=== PATIENT | male | born 1960 | race Caucasian/White ===

== ENCOUNTER 2018-09-08 21:30 | Observation (INO) | payer MEDICAID, OTHER, SELFPAY ==
[2018-09-08 22:33] LABS: BASO # 0.2 K/uL (0.0-0.2); BASO % 1.5 % (0.0-2.0); EOS # 0.4 K/uL (0.0-0.7); EOS % 3.4 % (0.0-4.0); HEMOGLOBIN 17.4 g/dL (12.0-18.0); LYMPH % 18.2 % (20.0-40.0); MEAN CELL VOLUME 85.9 fl (80.0-94.0); MEAN CORPUSCULAR HEMOGLOBIN 29.2 pg (27.0-31.0); MEAN PLATELET VOLUME 9.5 fl (7.2-11.7); MONO # 0.8 K/uL (0.0-0.8); MONO % 6.9 % (0.0-10.0); NEUT # 7.6 K/uL (1.8-7.0); NRBC % 0.4 % (0.0-0.0); RBC 5.96 Mil/uL (4.40-5.90); RED CELL DISTRIBUTION WIDTH 14.1 % (11.5-14.5); WHITE BLOOD COUNT 10.9 K/uL (4.8-10.8)
[2018-09-08 22:34] LABS: VENOUS BLOOD GAS BASE EXCESS -0.5 mmol/L (0.0-2.0); VENOUS BLOOD GAS PCO2 39 mmHg (40-60); VENOUS BLOOD GAS PO2 52 mm/Hg (30-55)
[2018-09-08 22:42] LABS: ALB/GLOB RATIO 1.2 (1.0-2.1); ALBUMIN 4.4 g/dL (3.5-5.0); ALT/SGPT 42 U/L (21-72); AST/SGOT 39 U/L (17-59); BLOOD UREA NITROGEN 16 mg/dl (9-20); CALCIUM 9.7 mg/dL (8.4-10.2); GFR NON-AFRICAN AMERICAN > 60
--- NOTE | 2018-09-08 22:54 | ED PDOC ---
HPI: Hypertension/Hypotension Time Seen by Provider: 09/08/18 22:06 Chief Complaint (Nursing): High Blood Pressure Chief Complaint (Provider): High Blood Pressure History Per: Patient History/Exam Limitations: no limitations Onset/Duration Of Symptoms: Hrs Current Symptoms Are (Timing): Still Present Additional Complaint(s): 57 y/o male with no significant PMHx presents to the ED for evaluation of what he believes to be high blood pressure. Patient reports of waking up with blood shot eyes. Patient additionally reports of having one episode of a sharp headache and dizziness that spontaneously resolved within a couple seconds. Patient reports of measuring a blood pressure with systolic in the 200s while at home. Patient was told by his girlfriend to come to the ER for further evaluation. Denies chest pain and shortness of breath. Of note, patient is an active smoker, smoking several packs of cigarettes per day for the past 40 years. PMD: none provided Past Medical History Reviewed: Historical Data, Nursing Documentation, Vital Signs Vital Signs: Last Vital Signs Temp 98.8 F 09/08/18 21:46 Pulse 68 09/08/18 22:27 Resp 18 09/08/18 22:10 BP 191/116 H 09/08/18 22:27 Pulse Ox 96 09/08/18 22:10 - Medical History PMH: No Chronic Diseases Denies: Chronic Kidney Disease - Surgical History Surgical History: No Surg Hx - Family History Family History: States: Unknown Family Hx - Social History Current smoker - smoking cessation education provided: Yes - Home Medications Home Medications: Ambulatory Orders Medication Instructions Recorded Atorvastatin [Lipitor] 10 mg PO HS #0 tab 08/27/14 Folic Acid 1 mg PO DAILY #0 tab 08/27/14 Lisinopril [Zestril] 10 mg PO DAILY #0 tab 08/27/14 Metoprolol Tartrate [Lopressor] 12.5 mg PO Q12 #0 tab 08/27/14 Multivitamin 1 tab PO DAILY #0 tab 08/27/14 Pantoprazole [Protonix EC Tab] 40 mg PO BID #0 ect 08/27/14 Thiamine [Thiamine HCl] 100 mg PO DAILY #30 tab 08/27/14 - Allergies Allergies/Adverse Reactions: Allergies Allergy/AdvReac Type Severity Reaction Status Date / Time No Known Allergies Allergy Verified 08/22/14 13:19 Review of Systems ROS Statement: Except As Marked, All Systems Reviewed And Found Negative Constitutional: Positive for: Other (possible high blood pressure) Eyes: Positive for: Redness Cardiovascular: Negative for: Chest Pain Neurological: Positive for: Headache, Dizziness Physical Exam - Reviewed Nursing Documentation Reviewed: Yes Vital Signs Reviewed: Yes - Physical Exam Appears: Positive for: No Acute Distress Head Exam: Positive for: ATRAUMATIC, NORMOCEPHALIC Skin: Positive for: Normal Color, Warm, Dry Eye Exam: Positive for: Conjunctival injection (left lateral ) Neck: Positive for: Normal, Painless ROM, Supple Cardiovascular/Chest: Positive for: Regular Rate, Rhythm. Negative for: Murmur Respiratory: Positive for: Normal Breath Sounds. Negative for: Respiratory Distress Gastrointestinal/Abdominal: Positive for: Normal Exam, Soft. Negative for: Tenderness Extremity: Positive for: Normal ROM. Negative for: Deformity Neurological/Psych: Positive for: Awake, Alert, Oriented - Laboratory Results Result Diagrams: 09/08/18 22:15 09/08/18 22:15 Lab Results: pO2 52 mm/Hg (30-55) 09/08/18 22:26 VBG pH 7.40 (7.32-7.43) 09/08/18 22: VBG pCO2 39 mmHg (40-60) L 09/08/18 22: VBG HCO3 24.2 mmol/L 09/08/18 22: VBG Total CO2 25.4 mmol/L (22-28) 09/08/18 22: VBG O2 Sat (Calc) 92.6 % (40-65) H 09/08/18 22: VBG Base Excess -0.5 mmol/L (0.0-2.0) L 09/08/18 22: VBG Potassium 3.5 mmol/L (3.6-5.2) L 09/08/18 22: Sodium 139.0 mmol/L (132-148) 09/08/18 22: Chloride 106.0 mmol/L (98-107) 09/08/18 22: Glucose 103 mg/dL (75-110) 09/08/18: Lactate 1.7 mmol/L (0.7-2.1) 09/08/18 22: FiO2 21.0 % 09/08/18 22: Total Bilirubin 1.0 mg/dl (0.2-1.3) 09/08/18 22:15 AST 39 U/L (17-59) 09/08/18 22:15 ALT 42 U/L (21-72) 09/08/18 22:15 Alkaline Phosphatase 81 U/L (38-126) 09/08/18 22:15 Total Protein 8.1 G/DL (6.3-8.2) 09/08/18 22:15 Albumin 4.4 g/dL (3.5-5.0) 09/08/18 22:15 Globulin 3.7 gm/dL (2.2-3.9) 09/08/18 22:15 Albumin/Globulin Ratio 1.2 (1.0-2.1) 09/08/18 22:15 - ECG O2 Sat by Pulse Oximetry: 96 (RA) Pulse Ox Interpretation: Normal Medical Decision Making Medical Decision Making: Time: 2213 A/P: Cardiac workup with HTN -- PO Narvasc -- Reassess patient -- VBG -- EKG -- CMP -- Troponin I -- CBC with Differentials -- CXR Two Views -- Norvasc 5 mg PO 2340 Pt has been unresponsive to Norvasc and Hydralazine. Discussed the case with Hospitalist (Dr. Cobb) who agrees with strarting Nicardipine drip. Pt to be admitted to the ICU for further treatment of HTN. Scribe Attestation: Documented by Jabari Maradiaga, acting as a scribe Steven Bello MD. Provider Scribe Attestation: All medical record entries made by the Scribe were at my direction and personally dictated by me. I have reviewed the chart and agree that the record accurately reflects my personal performance of the history, physical exam, medical decision making, and the department course for this patient. I have also personally directed, reviewed, and agree with the discharge instructions and disposition. Disposition - Clinical Impression Clinical Impression: Hypertension - Patient ED Disposition Is Patient to be Admitted: Yes - Disposition Disposition Time: 23:42 Condition: SERIOUS Forms: [facility] (Georgian)
[2018-09-08] MEDS ORDERED: Nicardipine 20 MG/200 ML 20 MG/200 ML BAG IV ONE (23:54)
[2018-09-09] MEDS ORDERED: Nicardipine 20 MG/200 ML 20 MG/200 ML BAG ONE (00:02)
--- NOTE | 2018-09-09 00:31 | CP.PCM.HP ---
History of Present Illness - History of Present Illness History of Present Illness: cc: elevated BP HPI: 57 year old Male with PMHx HTN, not on anti-hypertensive medication presents to [facility] ED for evaluation of elevated BP (223/133) at home. Patient reports he has red eyes for 3 days. States he had occipital headache (3/10) associated with blurry vision this morning which resolved on its own. Denies chest pain, dyspnea, cough, nausea, vomiting, hematuria or decreased urination. Patient reports he was diagnosed with HTN in 2015 but does not take any medications. Also, reports intermittent generalized itching rash x 20 yrs. Denies any rash in patient's partner. 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 Smokes >1PPD X 40 Yrs, Drinks socially, denies illicit drug uses Family hx: Father and mother: HTN, andrzej has hx stroke at age55. Allergies: NKDA Meds: multivitamin salesperson men's furnishings: Florencia Calabrese (girl friend) [phone] Present on Admission - Present on Admission Any Indicators Present on Admission: No Review of Systems - Review of Systems Review of Systems: All 12 systems reviewed and neg except as mentioned in HPI Past Patient History - Infectious Disease Hx of Infectious Diseases: None - Tetanus Immunizations Tetanus Immunization: Unknown - Past Medical History & Family History Past Medical History?: No - Past Social History Smoking Status: Heavy Smoker > 10 Cigarettes Daily - CARDIAC Hx Cardiac Disorders: No - PULMONARY Hx Respiratory Disorders: No - NEUROLOGICAL Hx Neurological Disorder: No - HEENT Hx HEENT Problems: No - RENAL Hx Chronic Kidney Disease: No - ENDOCRINE/METABOLIC Hx Endocrine Disorders: No - HEMATOLOGICAL/ONCOLOGICAL Hx Blood Disorders: No - INTEGUMENTARY Hx Dermatological Problems: No - MUSCULOSKELETAL/RHEUMATOLOGICAL Hx Musculoskeletal Disorders: No Hx Falls: No - GASTROINTESTINAL Hx Gastrointestinal Disorders: No - GENITOURINARY/GYNECOLOGICAL Hx Genitourinary Disorders: No - PSYCHIATRIC Hx Physical Abuse: No Hx Substance Use: No - SURGICAL HISTORY Hx Surgeries: No - ANESTHESIA Hx Anesthesia: No Meds Allergies/Adverse Reactions: Allergies Allergy/AdvReac Type Severity Reaction Status Date / Time No Known Allergies Allergy Verified 08/22/14 13:19 Physical Exam - Constitutional Appears: Non-toxic, No Acute Distress, Unkempt - Head Exam Head Exam: NORMAL INSPECTION - Eye Exam Eye Exam: Conjunctival injection (B/L (L>R)), EOMI, PERRL - ENT Exam ENT Exam: Mucous Membranes Moist - Neck Exam Neck exam: Positive for: Normal Inspection - Respiratory Exam Respiratory Exam: Clear to Auscultation Bilateral, NORMAL BREATHING PATTERN. absent: Rhonchi, Wheezes, Respiratory Distress - Cardiovascular Exam Cardiovascular Exam: REGULAR RHYTHM, +S1, +S2 - GI/Abdominal Exam GI & Abdominal Exam: Normal Bowel Sounds, Soft. absent: Tenderness - Extremities Exam Extremities exam: Positive for: normal inspection, pedal pulses present. Negative for: calf tenderness, pedal edema - Neurological Exam Neurological exam: Alert, CN II-XII Intact, Oriented x3 - Psychiatric Exam Psychiatric exam: Normal Affect, Normal Mood - Skin Additional comments: Generalized fine circular erythematous rash of different stages due to scratching. No signs of superinfection. Results - Vital Signs Recent Vital Signs: Last Vital Signs Temp 98.8 F 09/08/18 21:46 Pulse 97 H 09/09/18 00:27 Resp 18 09/09/18 00:27 BP 185/103 H 09/09/18 00:27 Pulse Ox 95 09/09/18 00:27 - Labs Result Diagrams: 09/08/18 22:15 09/08/18 22:15 Labs: Laboratory Results - last 24 hr 09/08/18 09/08/18 09/08/18 22:15 22:15 22:26 WBC 10.9 H RBC 5.96 H Hgb 17.4 Hct 51.2 H MCV 85.9 MCH 29.2 MCHC 34.0 RDW 14.1 Plt Count 216 MPV 9.5 Neut % (Auto) 70.0 Lymph % (Auto) 18.2 L [place] % (Auto) 6.9 Eos % (Auto) 3.4 Baso % (Auto) 1.5 Neut # (Auto) 7.6 H Lymph # (Auto) 2.0 [place] # (Auto) 0.8 Eos # (Auto) 0.4 Baso # (Auto) 0.2 pO2 52 VBG pH 7.40 VBG pCO2 39 L VBG HCO3 24.2 VBG Total CO2 25.4 VBG O2 Sat (Calc) 92.6 H VBG Base Excess -0.5 L VBG Potassium 3.5 L Glucose 103 Lactate 1.7 FiO2 21.0 Sodium 141 139.0 Potassium 3.8 Chloride 107 106.0 Carbon Dioxide 23 Anion Gap 15 BUN 16 Creatinine 0.9 Est GFR ( Amer) > 60 Est GFR (Non-Af Amer) > 60 Random Glucose 107 Calcium 9.7 Total Bilirubin 1.0 AST 39 ALT 42 Alkaline Phosphatase 81 Troponin I 0.0170 Total Protein 8.1 Albumin 4.4 Globulin 3.7 Albumin/Globulin Ratio 1.2 Venous Blood Potassium 3.5 L Assessment & Plan - Assessment and Plan (Free Text) Assessment: 57 year old Male with PMHx HTN, not on anti-hypertensive medication presents to [facility] ED for evaluation of elevated BP (223/133) at home. Patient reports he has red eyes for 3 days. States he had occipital headache (3/10) associated with blurry vision this morning which resolved on its own. In the ED, patient's BP was 216/112. Patient is admitted for severe asymptomatic hypertension. Severe asymptomatic hypertension -Admit to telemetry -s/p amlodipine 5 mg and hydraline 10 mg -Started nicardipin drip in ED and SBP in 160s after 2 hours. will d/c nicardipin drip -ECG shows NSR @67 BMP, Twave inversion in v4,v5 and v6. -troponin x 1 neg -ECHO in 08/2014: EF 50-55% -F/U Troponin x 2 and ECG in AM -start Labetalol 10 mg ivp Q6H prn if SBP >180 -start amlodipine 5 mg and hctz 25 mg in AM Chronic itching rash -start benadryl cream Tobacco use disorder -Advised to quit -declined nicotine patch for now DVT prophylaxis -SCDs for now due to elevated BP Patient seen, examined and plan discussed with Dr. Reza Hyde, pgy-2
[2018-09-09 01:18] LABS: SQUAMOUS EPITHIAL < 1 /hpf (0-5); URINE BILIRUBIN NEGATIVE (NEGATIVE); URINE BLOOD NEGATIVE (NEGATIVE); URINE CLARITY CLEAR (Clear); URINE COLOR COLORLESS (YELLOW); URINE GLUCOSE (UA) NEG (NEGATIVE); URINE LEUKOCYTE ESTERASE NEG Leu/uL (Negative); URINE PROTEIN NEGATIVE (NEGATIVE); URINE UROBILINOGEN 0.2-1.0 mg/dL (0.2-1.0)
[2018-09-09] MEDS ORDERED: Labetalol 5mg/ml (4ml) IVP PRN (01:57)
[2018-09-09] MEDS: Diphenhydramine 1% CREAM TOP SCH ×2 (03:35→09:26)
[2018-09-09 03:41] VITALS: RESP 18
[2018-09-09 05:22] LABS: BLOOD UREA NITROGEN 14 mg/dl (9-20); CALCIUM 9.3 mg/dL (8.4-10.2); GFR NON-AFRICAN AMERICAN > 60; HDL CHOLESTEROL 34 MG/DL (30-70)
[2018-09-09 05:32] LABS: LDL CHOLESTEROL 166 mg/dL (0-129)
[2018-09-09 07:47] VITALS: O2SAT 97
--- NOTE | 2018-09-09 08:57 | CARD ---
APPROVED REPORT Date of service: 09/08/2018 EKG Measurement Heart [id number] <Conclusion> Normal sinus rhythm Possible Left atrial enlargement T wave abnormality, consider inferolateral ischemia Abnormal ECG
[2018-09-09] MEDS ORDERED: Multivitamin With Minerals Tab PO SCH (09:00)
[2018-09-09] MEDS ORDERED: MULTIVITAMIN PO SCH (09:00)
--- NOTE | 2018-09-09 09:01 | CARD ---
APPROVED REPORT Date of service: 09/08/2018 EKG Measurement Heart [id number] <Conclusion> Normal sinus rhythm Possible Left atrial enlargement Left ventricular hypertrophy T wave abnormality, consider inferolateral ischemia Abnormal ECG
--- NOTE | 2018-09-09 09:50 | RAD ---
Date of service: 09/08/2018 HISTORY: cough COMPARISON: Portable chest 08/20/2014. TECHNIQUE: Chest PA and lateral FINDINGS: LUNGS: Reticular markings are questionably increased at the medial right base but only in the frontal projection. Some of this is technical as the reticular markings are increased throughout the chest as compared to prior chest radiograph. Limited atypical infiltrate medial right base not excluded nevertheless. PLEURA: No significant pleural effusion identified. No pneumothorax apparent. CARDIOVASCULAR: Calcific atherosclerotic changes are seen related to the thoracic aorta. Normal cardiac size. No pulmonary vascular congestion. OSSEOUS STRUCTURES: No significant abnormalities. VISUALIZED UPPER ABDOMEN: Normal. OTHER FINDINGS: None. IMPRESSION: Borderline reticular infiltrate medial right base with remainder the examination is stable and unremarkable.
--- NOTE | 2018-09-09 09:57 | CP.PCM.DIS ---
<Pedro LealSurendra - Last Filed: 09/09/18 14:58> Provider - Provider Date of Admission: 09/08/18 23:43 Attending physician: Raina Cobb MD Consults: 09/09/18 03:48 Social Work Referral Routine Comment: smoking cessation Physician Instructions: Reason For Exam: smoking cessation Time Spent in preparation of Discharge (in minutes): 33 Diagnosis - Discharge Diagnosis (1) Hypertension Status: Acute (2) Rash and nonspecific skin eruption Status: Acute Hospital Course - Lab Results Lab Results: Most Recent Lab Values WBC 10.9 K/uL (4.8-10.8) H 09/08/18 22:15 RBC 5.96 Mil/uL (4.40-5.90) H 09/08/18 22:15 Hgb 17.4 g/dL (12.0-18.0) 09/08/18 22:15 Hct 51.2 % (35.0-51.0) H 09/08/18 22:15 MCV 85.9 fl (80.0-94.0) 09/08/18 22:15 MCH 29.2 pg (27.0-31.0) 09/08/18 22:15 MCHC 34.0 g/dL (33.0-37.0) 09/08/18 22:15 RDW 14.1 % (11.5-14.5) 09/08/18 22:15 Plt Count 216 K/uL (130-400) 09/08/18 22:15 MPV 9.5 fl (7.2-11.7) 09/08/18 22:15 Neut % (Auto) 70.0 % (50.0-75.0) 09/08/18 22:15 Lymph % (Auto) 18.2 % (20.0-40.0) L 09/08/18 22:15 [place] % (Auto) 6.9 % (0.0-10.0) 09/08/18 22:15 Eos % (Auto) 3.4 % (0.0-4.0) 09/08/18 22:15 Baso % (Auto) 1.5 % (0.0-2.0) 09/08/18 22:15 Neut # (Auto) 7.6 K/uL (1.8-7.0) H 09/08/18 22:15 Lymph # (Auto) 2.0 K/uL (1.0-4.3) 09/08/18 22:15 [place] # (Auto) 0.8 K/uL (0.0-0.8) 09/08/18 22:15 Eos # (Auto) 0.4 K/uL (0.0-0.7) 09/08/18 22:15 Baso # (Auto) 0.2 K/uL (0.0-0.2) 09/08/18 22:15 pO2 52 mm/Hg (30-55) 09/08/18 22:26 VBG pH 7.40 (7.32-7.43) 09/08/18 22:26 VBG pCO2 39 mmHg (40-60) L 09/08/18 22:26 VBG HCO3 24.2 mmol/L 09/08/18 22:26 VBG Total CO2 25.4 mmol/L (22-28) 09/08/18 22:26 VBG O2 Sat (Calc) 92.6 % (40-65) H 09/08/18 22:26 VBG Base Excess -0.5 mmol/L (0.0-2.0) L 09/08/18 22:26 VBG Potassium 3.5 mmol/L (3.6-5.2) L 09/08/18 22:26 Sodium 139.0 mmol/L (132-148) 09/08/18 22:26 Chloride 106.0 mmol/L (98-107) 09/08/18 22:26 Glucose 103 mg/dL (75-110) 09/08/18 22:26 Lactate 1.7 mmol/L (0.7-2.1) 09/08/18 22:26 FiO2 21.0 % 09/08/18 22:26 Sodium 138 mmol/l (132-148) 09/09/18 04:25 Potassium 3.5 MMOL/L (3.6-5.0) L 09/09/18 04:25 Chloride 107 mmol/L (98-107) 09/09/18 04:25 Carbon Dioxide 24 mmol/L (22-30) 09/09/18 04:25 Anion Gap 11 (10-20) 09/09/18 04:25 BUN 14 mg/dl (9-20) 09/09/18 04:25 Creatinine 0.9 mg/dl (0.8-1.5) 09/09/18 04:25 Est GFR ( Amer) > 60 09/09/18 04:25 Est GFR (Non-Af Amer) > 60 09/09/18 04:25 Random Glucose 99 mg/dL (75-110) 09/09/18 04:25 Calcium 9.3 mg/dL (8.4-10.2) 09/09/18 04:25 Total Bilirubin 1.0 mg/dl (0.2-1.3) 09/08/18 22:15 AST 39 U/L (17-59) 09/08/18 22:15 ALT 42 U/L (21-72) 09/08/18 22:15 Alkaline Phosphatase 81 U/L (38-126) 09/08/18 22:15 Troponin I 0.0150 ng/mL (0.00-0.120) 09/09/18 04:25 Total Protein 8.1 G/DL (6.3-8.2) 09/08/18 22:15 Albumin 4.4 g/dL (3.5-5.0) 09/08/18 22:15 Globulin 3.7 gm/dL (2.2-3.9) 09/08/18 22:15 Albumin/Globulin Ratio 1.2 (1.0-2.1) 09/08/18 22:15 Triglycerides 144 mg/DL (0-149) 09/09/18 04:25 Cholesterol 230 mg/dL (0-199) H 09/09/18 04:25 LDL Cholesterol Direct 166 mg/dL (0-129) H 09/09/18 04:25 HDL Cholesterol 34 MG/DL (30-70) 09/09/18 04:25 Venous Blood Potassium 3.5 mmol/L (3.6-5.2) L 09/08/18 22:26 Urine Color Colorless (YELLOW) 09/09/18 01:00 Urine Clarity Clear (Clear) 09/09/18 01:00 Urine pH 7.0 (5.0-8.0) 09/09/18 01:00 Ur Specific [place] < 1.005 (1.003-1.030) 09/09/18 01:00 Urine Protein Negative mg/dL (NEGATIVE) 09/09/18 01:00 Urine Glucose (UA) Neg mg/dL (NEGATIVE) 09/09/18 01:00 Urine Ketones Negative mg/dL (NEGATIVE) 09/09/18 01:00 Urine Blood Negative (NEGATIVE) 09/09/18 01:00 Urine Nitrate Negative (NEGATIVE) 09/09/18 01:00 Urine Bilirubin Negative (NEGATIVE) 09/09/18 01:00 Urine Urobilinogen 0.2-1.0 mg/dL (0.2-1.0) 09/09/18 01:00 Ur Leukocyte Esterase Neg Boni/uL (Negative) 09/09/18 01:00 Urine RBC (Auto) 1 /hpf (0-3) 09/09/18 01:00 Urine Microscopic WBC < 1 /hpf (0-5) 09/09/18 01:00 Ur Squamous Epith Cells < 1 /hpf (0-5) 09/09/18 01:00 - Hospital Course Hospital Course: 57 year old Male with PMH of HTN, not on anti-hypertensive medication presents to [facility] ED for evaluation of elevated BP (223/133) at home. Patient reported he had red eyes for 3 days and occipital headache associated with blurry vision. In the ED, patient's BP was 216/112. Patient was admitted for severe asymptomatic hypertension from ED. During hospital stay Cardiac troponins were checked and found negative x 3, EKG NSR showed some T wave abnormalities with no interval changes noted from previous exam. During Hptal course patient received treatment for elevated BP reaching BP controlled at goal, patient also today denies MORGAN,CP, SOB, abdominal pain, nausea, vomiting, dizziness, blurry vision or other acute medical complaint. Patient is for DC today, history, labs and chart reviewed, he will required outpatient follow up for OP re-eval and management of HTN. VS stable BP on DC is at goal 148/86. Patient also presents with papulo-erythmotous rash, intermittently itchy which patient states he has had it for approximately 20 years. Recommendations is given to also follow up with PMD at [facility] regarding his skin condition. Patient instructed on the importance of f/u, and medication compliance, and patient verbalizes understanding and agrees on plan. Rx to continue OP as noted in prescription section Discharge Exam - Head Exam Head Exam: NORMAL INSPECTION - Eye Exam Eye Exam: EOMI - Additional Findings Additional findings: - Constitutional Appears: Non-toxic, No Acute Distress - Head Exam Head Exam: NORMAL INSPECTION - Eye Exam Eye Exam: Conjunctival injection, EOMI, PERRL - ENT Exam ENT Exam: Mucous Membranes Moist - Neck Exam Neck exam: Positive for: Normal Inspection - Respiratory Exam Respiratory Exam: Clear to Auscultation Bilateral, NORMAL BREATHING PATTERN. absent: Rhonchi, Wheezes, Respiratory Distress - Cardiovascular Exam Cardiovascular Exam: REGULAR RHYTHM, +S1, +S2 - GI/Abdominal Exam GI & Abdominal Exam: Normal Bowel Sounds, Soft. absent: Tenderness - Extremities Exam Extremities exam: Positive for: normal inspection. Negative for: calf tenderness, pedal edema - Neurological Exam Neurological exam: Alert, CN II-XII Intact, Oriented x3 - Psychiatric Exam Psychiatric exam: Normal Affect, Normal Mood - Skin Additional comments: Generalized fine circular papuloerythematous rash. Different stages noted due to scratching. No signs of infection noted. Discharge Plan - Discharge Medications Prescriptions: RX: amLODIPine [Norvasc] 5 mg PO DAILY #30 tab RX: Atorvastatin [Lipitor] 20 mg PO DAILY #30 tab RX: Betamethasone Dip 0.05% [Diprolene] 45 applic TOP BID #1 tube RX: Losartan [Cozaar] 50 mg PO DAILY #30 tab - Follow Up Plan Condition: SERIOUS Patient education suggested?: Yes Instructions: High Blood Pressure (DC), Controlling Your Blood Pressure Through Lifestyle Additional Instructions: Follow with your PMD or at [facility] in 1 week Take your medication as prescribed. ED precautions: Return to ED if your condition recurs, or you have headache, chest pain, shortness of breath, abdominal pain, back pain, dizziness, blurry vision, nausea, vomiting or other new symptom or concerns presents Referrals: [facility] [place] [Outside] <HarshalMariama - Last Filed: 09/09/18 15:22> Provider - Provider Date of Admission: 09/08/18 23:43 Attending physician: Raina Cobb MD Consults: 09/09/18 03:48 Social Work Referral Routine Comment: smoking cessation Physician Instructions: Reason For Exam: smoking cessation Hospital Course - Lab Results Lab Results: Most Recent Lab Values WBC 10.9 K/uL (4.8-10.8) H 09/08/18 22:15 RBC 5.96 Mil/uL (4.40-5.90) H 09/08/18 22:15 Hgb 17.4 g/dL (12.0-18.0) 09/08/18 22:15 Hct 51.2 % (35.0-51.0) H 09/08/18 22:15 MCV 85.9 fl (80.0-94.0) 09/08/18 22:15 MCH 29.2 pg (27.0-31.0) 09/08/18 22:15 MCHC 34.0 g/dL (33.0-37.0) 09/08/18 22:15 RDW 14.1 % (11.5-14.5) 09/08/18 22:15 Plt Count 216 K/uL (130-400) 09/08/18 22:15 MPV 9.5 fl (7.2-11.7) 09/08/18 22:15 Neut % (Auto) 70.0 % (50.0-75.0) 09/08/18 22:15 Lymph % (Auto) 18.2 % (20.0-40.0) L 09/08/18 22:15 Bonner % (Auto) 6.9 % (0.0-10.0) 09/08/18 22:15 Eos % (Auto) 3.4 % (0.0-4.0) 09/08/18 22:15 Baso % (Auto) 1.5 % (0.0-2.0) 09/08/18 22:15 Neut # (Auto) 7.6 K/uL (1.8-7.0) H 09/08/18 22:15 Lymph # (Auto) 2.0 K/uL (1.0-4.3) 09/08/18 22:15 [place]ner # (Auto) 0.8 K/uL (0.0-0.8) 09/08/18 22:15 Eos # (Auto) 0.4 K/uL (0.0-0.7) 09/08/18 22:15 Baso # (Auto) 0.2 K/uL (0.0-0.2) 09/08/18 22:15 pO2 52 mm/Hg (30-55) 09/08/18 22:26 VBG pH 7.40 (7.32-7.43) 09/08/18 22:26 VBG pCO2 39 mmHg (40-60) L 09/08/18 22:26 VBG HCO3 24.2 mmol/L 09/08/18 22:26 VBG Total CO2 25.4 mmol/L (22-28) 09/08/18 22:26 VBG O2 Sat (Calc) 92.6 % (40-65) H 09/08/18 22:26 VBG Base Excess -0.5 mmol/L (0.0-2.0) L 09/08/18 22:26 VBG Potassium 3.5 mmol/L (3.6-5.2) L 09/08/18 22:26 Sodium 139.0 mmol/L (132-148) 09/08/18 22:26 Chloride 106.0 mmol/L (98-107) 09/08/18 22:26 Glucose 103 mg/dL (75-110) 09/08/18 22:26 Lactate 1.7 mmol/L (0.7-2.1) 09/08/18 22:26 FiO2 21.0 % 09/08/18 22:26 Sodium 138 mmol/l (132-148) 09/09/18 04:25 Potassium 3.5 MMOL/L (3.6-5.0) L 09/09/18 04:25 Chloride 107 mmol/L (98-107) 09/09/18 04:25 Carbon Dioxide 24 mmol/L (22-30) 09/09/18 04:25 Anion Gap 11 (10-20) 09/09/18 04:25 BUN 14 mg/dl (9-20) 09/09/18 04:25 Creatinine 0.9 mg/dl (0.8-1.5) 09/09/18 04:25 Est GFR ( Amer) > 60 09/09/18 04:25 Est GFR (Non-Af Amer) > 60 09/09/18 04:25 Random Glucose 99 mg/dL (75-110) 09/09/18 04:25 Hemoglobin A1c 5.8 % (4.2-6.5) 09/09/18 04:25 Calcium 9.3 mg/dL (8.4-10.2) 09/09/18 04:25 Total Bilirubin 1.0 mg/dl (0.2-1.3) 09/08/18 22:15 AST 39 U/L (17-59) 09/08/18 22:15 ALT 42 U/L (21-72) 09/08/18 22:15 Alkaline Phosphatase 81 U/L (38-126) 09/08/18 22:15 Troponin I 0.0160 ng/mL (0.00-0.120) 09/09/18 11:00 Total Protein 8.1 G/DL (6.3-8.2) 09/08/18 22:15 Albumin 4.4 g/dL (3.5-5.0) 09/08/18 22:15 Globulin 3.7 gm/dL (2.2-3.9) 09/08/18 22:15 Albumin/Globulin Ratio 1.2 (1.0-2.1) 09/08/18 22:15 Triglycerides 144 mg/DL (0-149) 09/09/18 04:25 Cholesterol 230 mg/dL (0-199) H 09/09/18 04:25 LDL Cholesterol Direct 166 mg/dL (0-129) H 09/09/18 04:25 HDL Cholesterol 34 MG/DL (30-70) 09/09/18 04:25 Venous Blood Potassium 3.5 mmol/L (3.6-5.2) L 09/08/18 22:26 Urine Color Colorless (YELLOW) 09/09/18 01:00 Urine Clarity Clear (Clear) 09/09/18 01:00 Urine pH 7.0 (5.0-8.0) 09/09/18 01:00 Ur Specific [place] < 1.005 (1.003-1.030) 09/09/18 01:00 Urine Protein Negative mg/dL (NEGATIVE) 09/09/18 01:00 Urine Glucose (UA) Neg mg/dL (NEGATIVE) 09/09/18 01:00 Urine Ketones Negative mg/dL (NEGATIVE) 09/09/18 01:00 Urine Blood Negative (NEGATIVE) 09/09/18 01:00 Urine Nitrate Negative (NEGATIVE) 09/09/18 01:00 Urine Bilirubin Negative (NEGATIVE) 09/09/18 01:00 Urine Urobilinogen 0.2-1.0 mg/dL (0.2-1.0) 09/09/18 01:00 Ur Leukocyte Esterase Neg Boni/uL (Negative) 09/09/18 01:00 Urine RBC (Auto) 1 /hpf (0-3) 09/09/18 01:00 Urine Microscopic WBC < 1 /hpf (0-5) 09/09/18 01:00 Ur Squamous Epith Cells < 1 /hpf (0-5) 09/09/18 01:00 Urine Opiates Screen Negative (NEGATIVE) 09/09/18 12:00 Urine Methadone Screen Negative (NEGATIVE) 09/09/18 12:00 Ur Barbiturates Screen Negative (NEGATIVE) 09/09/18 12:00 Ur Phencyclidine Scrn Negative (NEGATIVE) 09/09/18 12:00 Ur Amphetamines Screen Negative (NEGATIVE) 09/09/18 12:00 U Benzodiazepines Scrn Negative (NEGATIVE) 09/09/18 12:00 U Oth Cocaine Metabols Negative (NEGATIVE) 09/09/18 12:00 U Cannabinoids Screen Negative (NEGATIVE) 09/09/18 12:00 Attending/Attestation - Attestation I have personally seen and examined this patient.: Yes I have fully participated in the care of the patient.: Yes I have reviewed all pertinent clinical information, including history, physical exam and plan: Yes Notes (Text): Hypertensive Urgency Chronic Dermatitis probably Eczema Pt's symptoms resolved , BP now controlled started on Norvasc and Losartan FF up [facility] in 2 wks for BP monitoring and further work up Betamethasone lotion for skin condition
[2018-09-09 12:09] VITALS: BP 148/86; PULSE 71; TEMP 98.6
[2018-09-09 12:59] LABS: BARBITURATES, UR NEGATIVE (NEGATIVE); BENZODIAZEPINES, UR NEGATIVE (NEGATIVE); OPIATES, UR NEGATIVE (NEGATIVE); PHENCYCLIDINE, UR NEGATIVE (NEGATIVE)
== END 2018-09-09 15:25 | disposition home or self-care (01) ==
LOC: H.ER 21:30 → INTOOBSV 23:43 → H.ERHOLD 23:43 → H.TEL 09-09 03:05
PROVIDERS: ADMIT Internal Medicine; ATTEND Internal Medicine
DX: I16.0 Hypertensive urgency (principal); L30.9 Dermatitis, unspecified; F17.210 Nicotine dependence, cigarettes, uncomplicated
CPT/HCPCS: 36415; 71046; 80048; 80053; 80061; 80324; 80345; 80346; 80349; 80353; 80358; 80361; 81003; 82803; 83036; 83992; 84484; 85025; 93005; 96360; 99285; G0378; J0360